=== PATIENT | female | born 1985 | race Caucasian/White ===

== ENCOUNTER 2024-11-07 13:36 | Outpatient (CLI) | payer OTHER, SELFPAY ==
--- NOTE | 2024-11-07 14:23 | P.ANES_ITS ---
Anesthesia Charges Start Date/Time Anesthesia Start Date: 11/07/24 Anesthesia Start Time: 14:36 Stop Date/Time Anesthesia Stop Date: 11/07/24 Anesthesia Stop Time: 15:10 Coding CPT Codes CPT Codes: ANES UPR LWR GI NDSC PX - 60227 ([id number]) P3 - PATIENT W/SEVERE SYS DISEASE, QK - DRIVER/MERCHANDISER 2-4 CNCRNT ANES PROC, QX - ENGINE SPECIALIST SVC W/ MD MED DIRECTION
--- NOTE | 2024-11-07 14:23 | W.ANESCHARGE ---
Anesthesia Charges Start Date/Time Anesthesia Start Date: 11/07/24 Anesthesia Start Time: 14:36 Stop Date/Time Anesthesia Stop Date: 11/07/24 Anesthesia Stop Time: 15:10 Coding CPT Codes CPT Codes: ANES UPR LWR GI NDSC PX - 19760 ([id number]) P3 - PATIENT W/SEVERE SYS DISEASE, QK - EQUIPMENT MAINTENANCE TECH 2-4 CNCRNT ANES PROC, QX - ICE SKATING COACH SVC W/ MD MED DIRECTION
--- NOTE | 2024-11-07 15:13 | P.ANES_ITS ---
Anesthesia Charges Start Date/Time Anesthesia Start Date: 11/07/24 Anesthesia Start Time: 14:36 Stop Date/Time Anesthesia Stop Date: 11/07/24 Anesthesia Stop Time: 15:10 Coding CPT Codes CPT Codes: ANES UPR LWR GI NDSC PX - 21171 ([id number]) P3 - PATIENT W/SEVERE SYS DISEASE, QK - DIPLOMATIC INTERPRETER/TRANSLATOR 2-4 CNCRNT ANES PROC, QX - QUARRY MANAGER SVC W/ MD MED DIRECTION
--- NOTE | 2024-11-07 15:13 | W.ANESCHARGE ---
Anesthesia Charges Start Date/Time Anesthesia Start Date: 11/07/24 Anesthesia Start Time: 14:36 Stop Date/Time Anesthesia Stop Date: 11/07/24 Anesthesia Stop Time: 15:10 Coding CPT Codes CPT Codes: ANES UPR LWR GI NDSC PX - 09069 ([id number]) P3 - PATIENT W/SEVERE SYS DISEASE, QK - VP MEDICAL 2-4 CNCRNT ANES PROC, QX - ATHLETIC EQUIPMENT CUSTODIAN SVC W/ MD MED DIRECTION
== END 2024-11-07 13:37 | disposition home or self-care (01) ==
PROVIDERS: PCP Family Medicine; Visit Provider Internal Medicine Gastroenterology
DX: K92.1 Melena (principal); R10.13 Epigastric pain; K21.9 Gastro-esophageal reflux disease without esophagitis; K64.8 Other hemorrhoids; R19.7 Diarrhea, unspecified
CPT/HCPCS: 00813; 43239; 45380; 88305; J2704; J3490